=== PATIENT | female | born 1970 | race Caucasian/White ===

== ENCOUNTER 2023-10-29 10:25 | Day surgery (SDC) | payer SELFPAY ==
--- NOTE | 2023-10-24 14:23 | PCM.HP.BLA ---
History and Physical Date of Admission: 10/29/23 HPI: The patient is a 53 year old female presenting for pre-operative visit. She is scheduled for hysteroscopy D&C w/ polyp resection, for PMB, endometrial polyp on 10/29/23. Procedure discussed along with risks, benefits and complications. Other alternatives discussed for management. Consent form signed? Yes. ? ? PAST MEDICAL HISTORY PAST MEDICAL HISTORY Diagnosis Date ? Depression ? ? DJD (degenerative joint disease) ? ? Fibromyalgia ? ? Gout ? ? Hyperlipemia ? ? Insomnia ? ? Osteoarthritis ? ? ? PAST SURGICAL HISTORY PAST SURGICAL HISTORY Procedure Laterality Date ? D&C, DIAG AND/OR THERAPEUTIC ? ? ? REMOVAL GALLBLADDER ? ? ? REPAIR ROTATOR CUFF,ACUTE Left ? ? SALPINGECTOMY Bilateral ? ? SHOULDER SURGERY HX Left ? ? frozen shoulder ? ? ? CURRENT MEDICATIONS No current outpatient medications on file. ? No current facility-administered medications for this visit. ? ? ALLERGIES: Patient has no known allergies. ? PERSONAL HISTORY: SOCIAL HISTORY Social History ? Tobacco Use ? Smoking status: Never ? Smokeless tobacco: Never Vaping Use ? Vaping Use: Never used Substance Use Topics ? Alcohol use: Never ? Drug use: Never ? FAMILY HISTORY: FAMILY HISTORY FAMILY HISTORY Problem Relation Age of Onset ? Ischemic Heart Disease Mother ? ? CABG x 6 vessels ? Hypertension Mother ? ? other (CHF) Mother ? ? COPD Father ? ? Hypertension Father ? ? Diabetes Father ? ? Skin Cancer Sister ? ? Ischemic Heart Disease Brother ? ? ? REVIEW OF SYMPTOMS: GENERAL: denies fevers or chills ENDOCRINOLOGY: has not been on steroids Cardiology : denies palpitations or chest pain Respiratory: denies SOB or cough Hematology: denies history of prolonged bleeding or easy bruising or VTE Allergy: Denies history of personal or family history of allergy to anesthesia ? PHYSICAL EXAMINATION: ? VITALS: Blood pressure 122/78, weight 240 lb (108.9 kg). ? GENERAL: The patient is well nourished, well hydrated in no acute distress. , The patient is oriented to time, place, and person. NECK: Supple. No lynphadenopathy, normal thyroid, no thyromegaly. LUNGS: Clear to auscultation bilaterally. no wheezes, rhonchi or rales HEART: Regular rate and rhythm, Normal heart sounds, and No murmurs or gallops ? IMPRESSION: PMB, endometrial polyp ? PLAN: The risks/benefits/alternatives and personal involved for the planned hysteroscopy D&C with polyp resection were reviewed with the patient. Her questions were answered to her satisfaction and she desires to proceed. Consent was signed. I reviewed with her postop instructions and expectations. ? ? I have reviewed and updated past medical and surgical history, medications and allergies Assessment & Plan Assessment/Plan (1) PMB (postmenopausal bleeding): (2) Endometrial polyp:
[2023-10-29] VITALS (8 sets, daily range): BP systolic 101–119; BP diastolic 58–80; PULSE 62–88; RESP 16–18; TEMP 36.4–36.7; O2SAT 93–99; BMI 42.3
[2023-10-29] MEDS: Lactated Ringers 1,000 ML 15 ML IV (11:12)
[2023-10-29] MEDS: Ketorolac 30 MG/ML Syringe IV (11:13)
--- NOTE | 2023-10-29 12:05 | EMB_PTH ---
PATHOLOGY RESULTS PATIENT: DUSTY NUÑEZ [place] [facility] [place][id number] AGE/SX: 53/F ROOM: RE10/29/[address]: Dr. Ijeoma Hannah MD : 1970 BED: DIS: 10/29/2023 SPEC #: [id number] RECD: 10/30/23 06:59 STATUS: ROLA YODER #: [id number] AZUL: 10/29/23 12:[address]: Ijeoma Hannah DEPT: SURGICAL PATHOLOGY RECD BY: Mirna Jin ENTERED: 10/30/23 07:00 SP TYPE: ENDOM BX/C OTHR DR: Dr. Julio Cesar Marino MD Tissues: Endometrium, NOS Procedures: Surgery Specimen Level IV HEADER OPERATION: Hysteroscopy, D & C PRE-OP DIAGNOSIS: Postmenopausal bleeding, endometrial polyp TISSUE SUBMITTED: Endometrial curettings MICROSCOPIC DIAGNOSIS Endometrial curettings: Proliferative endometrium. Fragments of endocervical mucosa with moderate to marked chronic inflammation and mild acute inflammation. VELASQUEZ:jame 11/02/2023 MICROSCOPIC DESCRIPTION Slides are reviewed. GROSS DESCRIPTION Received in fixative is one container labeled with the patient's name and designated endometrial curettings. The specimen consists of multiple irregular and mucoid fragments of reddish-vargas soft tissue that in aggregate measure 1.5 x 1.0 x <0.1 cm. The specimen is totally submitted in one cassette. / AM:jame 10/30/2023 TC: CPT: 14373
--- NOTE | 2023-10-29 12:08 | DCINST_ITS ---
Discharge Instructions Diet Discharge Diet: No restrictions Activity May resume sexual activity in: 1 week Lifting Restrictions: none Dressing / Incision Call your doctor if your incision/area has: Sudden Increased Bleeding and Foul Smelling Discharge Call your doctor if you observe: Fever of 101 or Higher and Using more than 1 pad per hour (for 2 hrs in a row) Follow Up Care Please Follow Up With: Ijeoma Hannah MD When: You do not need a postop appointment. If you have any further bleeding please notify us. Call [phone] to make an appointment or with any concerns. Test Results: Test results from this visit will be discussed in further detail at your follow- up appointment, if applicable. Discharge Plan Admission Primary Reason for Your Visit: Hysteroscopy D&C Attending Provider: Ijeoma Hannah Primary Care Provider: Julio Cesar Marino Discharge Orders/Prescriptions Prescriptions: No Action NK Referrals / Follow Up: Julio Cesar Marino MD [Primary Care Provider] - Disposition Disposition (needs filled in before D/C Order can be placed): Home, Self Care
--- NOTE | 2023-10-29 12:09 | PCM.OPRPT ---
Problems Associated Problem List Diagnoses (1) Endometrial polyp: (2) PMB (postmenopausal bleeding): Report of Operation Date of Procedure: 10/29/23 Pre-Operative Diagnosis: pmb, endometrial polyp Post-Operative Diagnosis: same Surgery/Procedure Performed:: hysteroscopy D&C Description of Surgical Findings:: atrophic endometrium, normal vagina and vulva Surgeon: Ijeoma Hannah speech language pathologist prn: None Type of Anesthesia: MAC/Supplemental/Local Anesthesiologist: Jessica Nickerson Special Medications: none Specimen's removed: endometrial curettings Drains: none Estimated Blood Loss (mL): 10 Fluids Replaced: 800 Description of Procedure: The patient was taken to the OR where she was prepped and draped in dorsal lithotomy position. The weighted speculum was placed in the vagina and the anterior lip of the cervix was grasped with a single-tooth tenaculum. A paracervical block was administered with [1% lidocaine with 1-100,000 epinephrine solution]. The cervix was dilated serially with Hegar dilators. The Symphion hysteroscope was placed into the uterine cavity and the above findings were noted. Bilateral tubal ostia [were] identified. The hysteroscope was removed. A gentle sharp curettage was done of the uterine cavity. The instruments were removed from the vagina. The specimen was handed off and sent to pathology. All sponge and needle counts were correct. Vaginal sweep was performed by me. The patient was awakened and taken to the recovery room in stable condition. Calculated hysteroscopic fluid deficit 20 cc of normal saline Grafts/Implants Used: none Procedure Start Time: 12:39 Procedure Stop Time: 12:43 Complications none Admit VTE Documentation VTE Present on Admission: No VTE Mechan Device Prophylaxis: SCD's VTE Pharm Prophylaxis ordered?: No Reason prophylaxis not ordered:: Procedure Not Indicated
[2023-10-29] MEDS: Lidocaine 1% /Epi 1:100 (20ml) 20 ML Vial (12:39)
== END 2023-10-29 14:18 | disposition home or self-care (01) ==
LOC: SDC 10:33 → AC 10:36
PROVIDERS: PCP Family Medicine; Referring Provider Obstetrics & Gynecology; Visit Provider Obstetrics & Gynecology
PROC: 0UB98ZZ Excision of Uterus, Via Natural or Artificial Opening Endoscopic (ICD-10-PCS; CPT 58558; principal; 2023-10-29 11:50)
DX: N95.0 Postmenopausal bleeding (principal); N84.0 Polyp of corpus uteri; E78.5 Hyperlipidemia, unspecified
CPT/HCPCS: 58558; 00952; 88305; J7120; J2405